=== PATIENT | male | born 1960 | race Caucasian/White ===

== ENCOUNTER 2019-05-14 16:31 | Emergency (ER) | payer MEDICARE, MEDICAID ==
[~2019-05-14] VITALS: Ht 172.7 cm; Wt 95.0 kg
[2019-05-14] MEDS ORDERED: ondansetron/PF 4mg/2ml inj IV ONE (18:45)
[2019-05-14] MEDS ORDERED: morphine 2 MG/ML inj. syringe IV ONE (18:45)
--- NOTE | 2019-05-14 19:35 | NUR ---
Received report from Raina JARRETT and assumed pt care.
[2019-05-14 20:25] VITALS: BP 150/85
== END 2019-05-14 20:26 | disposition home or self-care (01) ==
LOC: ER 16:31
DX: R04.0 Epistaxis (principal); I10 Essential (primary) hypertension; Z88.5 Allergy status to narcotic agent
CPT/HCPCS: 30901; 96374; 96375; 99284; J2270; J2405

== ENCOUNTER 2019-05-16 09:14 | Emergency (ER) | payer MEDICARE, MEDICAID ==
[~2019-05-16] VITALS: Ht 172.7 cm; Wt 95.0 kg
[2019-05-16] MEDS ORDERED: oxymetazoline 15 ML nasal spray NS ONE (09:50)
[2019-05-16] MEDS ORDERED: LORazepam 1 MG tablet PO ONE (10:25)
[2019-05-16] MEDS ORDERED: morphine 4 MG/ML inj SYRINge IM ONE (10:30)
[2019-05-16 10:44] VITALS: BP 141/86
[2019-05-16] MEDS ORDERED: CEPH250T PO (11:48)
== END 2019-05-16 11:34 | disposition home or self-care (01) ==
LOC: ER 09:15
DX: R04.0 Epistaxis (principal); I10 Essential (primary) hypertension; Z88.5 Allergy status to narcotic agent; Z79.899 Other long term (current) drug therapy
CPT/HCPCS: 30901; 96372; 99285; J2270; 99284

== ENCOUNTER 2019-05-19 10:39 | Emergency (ER) | payer MEDICARE, MEDICAID ==
[~2019-05-19] VITALS: Ht 172.7 cm; Wt 95.0 kg
[~2019-05-19 10:39] MED LIST: CEPH250T PO
[2019-05-19 14:14] VITALS: BP 158/92
== END 2019-05-19 13:30 | disposition home or self-care (01) ==
LOC: ER 10:39
DX: Z48.00 Encounter for change or removal of nonsurgical wound dressing (principal); I10 Essential (primary) hypertension; Z88.5 Allergy status to narcotic agent
CPT/HCPCS: 99281

== ENCOUNTER 2025-03-09 14:23 | Inpatient (IN) | payer MEDICARE, MEDICAID ==
[~2025-03-09] VITALS: Ht 170.2 cm; Wt 60.0 kg
--- NOTE | 2025-03-09 15:27 | Physician Documentation ---
History of Present Illness ~ General Chief Complaint: Mechanical Fall Stated Complaint: R HIP X Time Seen by MD: 14:39 Primary Medical Doctor: None Mode of Arrival: EMS History of Present Illness Initial Comments CC: Right hip pain HPI: 64-year-old male with a history of hypertension who drinks one pt of whiskey daily presents with right hip pain and inability to ambulate complaining of an 8/10 throbbing pain. Per report he had a mechanical fall approximately one week ago and landed on his right hip ever since he has been unable to bear weight and unable to ambulate. A spanish speaking babysitter checked on him today and noticed a situation at which time the ambulance was called. Denies any head or neck trauma. No chest pain, shortness of breath, abdominal pain, vomiting or diarrhea. Patient denies any open wounds. ROS: Constitutional: Negative for fever and chills. HENT: Negative for sore throat and rhinorrhea. Eyes:Negative for pain and redness. Respiratory: Negative for cough and shortness of breath. Cardiovascular: Negative for chest pain and palpitations. Gastrointestinal: Negative for nausea and vomiting. Genitourinary: Negative for dysuria and hematuria. Musculoskeletal: Positive for right hip pain Skin: Negative for rash and pruritus. Neurological: Negative for acute numbness or weakness. PHYSICAL EXAM: General Appearance: WDWN, No Distress, Cooperative, Awake Head: No Trauma. Scalp Normal Eyes: Lids normal, conjunctiva normal ENT: Mucous membranes normal, facial bones normal, lips normal, oropharynx norm al Neck: Normal active FROM, non-tender with ROM, no meningeal signs, No JVD Back: Normal active FROM, non-tender with ROM, no CVAT Resp: Normal resp rate, normal flow, lungs clear to auscultation, no resp distress, no retractions Heart: Reg rhythm, no murmur Abd: Soft, non-tender, no guarding, no rebound, no mass Musc/Skel: No chest wall tenderness, Normal ROM UE's and LE's, No acute bone/joint abnormality or tenderness Skin: Normal color, no petechia/purpura, no rash Extremities: 1+ bilateral lower extremity edema, 1+ TTP right lateral hip, unable to flex or rotated hip, femoral pulse 2 +, sensation intact to light touch anterior, posterior, medial, lateral, dorsal webspace of right lower extremity, leg does not appear shortened or rotated Neuro: Motor 5/5 & Symmetric Bilat, CN 2-12 grossly intact and symmetric bilat. Oriented x4, speech normal. Psych: Mood & Affect: Normal, Depressed: 0, Awareness & insight normal ER COURSE -I have reviewed the triage note. History obtained from the patient -All Labs, if applicable, independently reviewed by me I checked in EMR for old Records -Summary of additional information obtained from old records or from a source other than the patient: Medic report Repeat Evaluation: 5:00 p.m. hemodynamically stable, pain 3/10 Additional REPEAT EVALUATION: Results and plan of care discussed with patient, patient understands and is agreeable to plan and disposition MEDICAL DECISION MAKIN-year-old male presents with recent mechanical fall onto right hip found to have a subcapital femoral neck fracture, closed, neurovascularly intact, orthopedics we will be consulted, patient also found to be hypokalemic at 2.7 which we will be treated with p.o. and IV potassium, likely a results of patient's chronic alcoholism, currently hemodynamically stable with no evidence of withdrawal, neurologically intact and denies any head or neck trauma alert and oriented x4, patient will be admitted for further treatment and workup Patient will be signed out to , awaiting hospitalist team called to admit patient Please see ED course for time stamped additional medical decision making during ED stay CRITICAL CARE TIME excluding billable procedures, 45 minutes were spent in generating a differential diagnosis, stratifying it based on objective testing results, history, and physical examination; and then implementing a treatment plan for this patient Medication Reconciliation Allergies: Coded Allergies: codeine (Verified Allergy, Intermediate, 05/14/19) Past Medical History Past Medical History: Epistaxis, Hypertension Past Surgical History: other Alcohol Use: None Drug Use: none Lives with: Spouse Lives In: Home Physical Exam Physical Exam Vital Signs: Temperature: 99.1, Source: Oral, Heart Rate: 97, Respiratory Rate: 18, BP: 91/55, Pulse Oximetry: 97, Weight: 60.000 Oxygen Flow Rate: 0 Progress Results/Orders Results/Orders Orders - TRINY COLEY MD BMP (03/09/25 15:03) Urinalysis, Cult If Indicated (03/09/25 15:03) Chest,Single View (03/09/25 15:03) Hip Unilateral 2-3 Views (03/09/25 15:03) Saline Lock (03/09/25 15:03) Monitor (03/09/25 15:03) Potassium Cl Inj (Potassium Cl Inj) (03/09/25 16:05) Page Hospitalist (03/09/25 17:37) MG (03/09/25 15:06) PBNP (03/09/25 15:06) PHOS (03/09/25 15:06) Completed Orders - TRINY COLEY MD Cbc/Diff (03/09/25 15:03) Electrocardiogram (03/09/25 15:03) Chest,Single View (03/09/25 15:03) Hip Unilateral 2-3 Views (03/09/25 15:03) Nothing By Mouth (03/09/25 Dinner) Normal Saline 500ml Iv Soln (Sodium Chlo (03/09/25 15:05) Potassium Cl 10meq Er Tablet (Klor-Con 1 (03/09/25 15:50) Morphine 2mg/Ml Inj. (Morphine Inj.) (03/09/25 16:30) Ondansetron Inj. (Zofran 4mg/2ml Vial) (03/09/25 16:30) Morphine 4mg/Ml Inj. (Morphine Inj.) (03/09/25 16:50) Medications Received in ER Medications (Trade) Dose Ordered Sig/Ciarra Route PRN Reason Start Time Stop Time Status Last Admin Dose Admin Sodium Chloride 500 ml @ 500 mls/hr ONCE ONCE IV 03/09/25 15:05 03/09/25 16:04 DC 03/09/25 15:42 500 MLS/HR (Klor-Con 10mEq ER tablet) 20 meq NOW ONCE PO 03/09/25 15:50 03/09/25 15:53 DC 03/09/25 16:14 20 MEQ Potassium Chloride 40 meq/ Sodium Chloride 520 ml @ 130 mls/hr ONCE ONCE IV 03/09/25 16:05 03/09/25 20:04 03/09/25 16:13 130 MLS/HR (Zofran 4mg/2ml vial) 4 mg ONCE ONCE IV 03/09/25 16:30 03/09/25 16:32 DC 03/09/25 16:56 4 MG (morphine inj.) 2 mg ONCE ONCE IV 03/09/25 16:50 03/09/25 16:51 DC 03/09/25 16:58 2 MG Vital Signs 03/09/25 03/09/25 03/09/25 03/09/25 14:27 14:35 14:46 14:52 Temp 99.1 Pulse 100 98 97 Resp 21 20 19 16 B/P (MAP) 104/62 90/45 (60) 89/45 (60) Pulse Ox 94 97 97 O2 Flow Rate 0 0 0 03/09/25 03/09/25 03/09/25 03/09/25 15:02 15:05 15:06 15:08 Pulse 97 95 97 97 Resp 16 14 16 18 B/P (MAP) 86/53 (64) 84/51 (62) 86/53 (64) 91/55 (67) Pulse Ox 95 95 97 97 O2 Flow Rate 0 0 0 0 03/09/25 03/09/25 03/09/25 03/09/25 15:33 16:23 17:01 18:14 Pulse 94 95 92 101 Resp 16 16 16 14 B/P (MAP) 99/54 (69) 118/70 (86) 110/66 (81) 133/61 (85) Pulse Ox 94 96 95 95 O2 Flow Rate 0 0 0 0 Laboratory Tests Test 03/09/25 15:06 03/09/25 18:30 White Blood Count 12.4 H Red Blood Count 3.34 L Hemoglobin 12.0 L Hematocrit 35.8 L Mean Corpuscular Volume 107.1 H Mean Corpuscular Hemoglobin 36.1 H Mean Corpuscular Hemoglobin Concent 33.7 Red Cell Distribution Width 18.0 H Platelet Count 355 Mean Platelet Volume 7.5 Neutrophils (%) (Auto) 71.5 Lymphocytes (%) (Auto) 15.0 L Monocytes (%) (Auto) 9.6 Eosinophils (%) (Auto) 3.2 Basophils (%) (Auto) 0.7 Neutrophils # (Auto) 8.9 H Lymphocytes # (Auto) 1.9 Monocytes # (Auto) 1.2 H Eosinophils # (Auto) 0.4 Basophils # (Auto) 0.1 CBC Comment Coagulation Comments Sodium Level 137 Potassium Level 2.7 *L Chloride Level 98 L Carbon Dioxide Level 29.3 Anion Gap 10 Blood Urea Nitrogen 8 Creatinine 0.73 Estimated GFR/1.73 m2 > 90 BUN/Creatinine Ratio 11.0 Glucose Level 106 H Calcium Level 8.5 Albumin 2.8 L Chemistry Comments Urine Comment EKG/XRAY/CT/US/VASC/MRI EKG : Additional Comment Rate 92, sinus rhythm, left atrial enlargement, poor R-wave progression nonspecific ST/T changes Abnormal EKG Bone/Soft Tissue X-Ray (Spine) : Additional Comment Right hip x-ray three view Indication: Fall/pain FINDINGS/IMPRESSION: There is a subcapital fracture of the right femoral neck. There are [id number] degenerative changes of the bilateral hips. Atherosclerotic calcification disease. Consults/PCP Consults/PCP : Additional Comment Consult orthopedic surgeon Dr. Alejandro, we will consult on patient upon admission Medical Decision Making Additional information obtaine: other Findings Nursing report Differential Diagnosis Hip fracture, open fracture, pneumonia, pneumothorax, head or neck trauma, electrolyte abnormality, withdrawal Departure Impression: Primary Impression: Closed right hip fracture Additional Impression: Hypokalemia Referrals: NO PRIMARY CARE PROVIDER (PCP) Signature Scribe Signature: xx Attestation: The note accurately reflects work and decisions made by me.Triny Coley MD 03/09/25 TRINY COLEY MD Mar 09, 2025 15:27
--- NOTE | 2025-03-09 15:31 | ELECTROCARDIOGRAPH REPORT ---
[facility] Test Date: 2025-03-09 Test Time: 15:30:39 Pat Name: JEANNINE AVERY Department: [facility] Patient ID: [facility]-[id number] Room: ORTHO [facility] Gender: M Housekeeper Hospital: : 1960 Requested By: TRINY MILLS Order Number: [id number] Reading MD: Dr. Dewayne Pagan Measurements Intervals [place] Rate: 92 P: 80 CT: 174 QRS: 55 QRSD: 81 T: 63 QT: 388 QTc: 481 Interpretive Statements Sinus rhythm Probable left atrial enlargement Anterior infarct, old Electronically Signed On 03-14-2025 0:21:[address] Dewayne Pagan Please click the below link to view image of tracing.
[2025-03-09 15:32] LABS: CREATININE 0.73 MG/DL (0.60-1.10); TOTAL CARBON DIOXIDE 29.3 MMOL/L (24-32); eCRCL 86 ML/MIN; eGFR > 90 ML/MIN
[2025-03-09] MEDS: normal saline 500ml IV soln 500 ML IV ONE ×2 (15:42→21:55)
[2025-03-09 15:45] LABS: MEAN PLATELET VOLUME 7.5 FL (7.4-10.4); RED CELL DISTRIBUTION WIDTH 18.0 % (11.5-14.5)
[2025-03-09] MEDS ORDERED: Potassium Cl inj 40 MEQ in normal saline 250ml IV soln 250 ML IV ONE (15:50)
--- NOTE | 2025-03-09 15:50 | RADIOLOGY REPORT ---
CHEST RADIOGRAPH INDICATION: FALL / TRAUMA TECHNIQUE: DI CHEST,SINGLE VIEW Comparison: None FINDINGS: The cardiac silhouette is unremarkable. The lungs demonstrate no pulmonary airspace consolidation. The pulmonary vasculature is unremarkable. There is no pleural effusion. There is no pneumothorax. Aortic atherosclerotic disease. IMPRESSION: No pulmonary airspace consolidation.
--- NOTE | 2025-03-09 15:51 | RADIOLOGY REPORT ---
INDICATION: RIGHT - TRAUMA TECHNIQUE: DI HIP UNILATERAL 2-3 VIEWSHIP 2-3VWS Comparison: None FINDINGS/IMPRESSION: There is a subcapital fracture of the right femoral neck. There are [id number]-[id number] degenerative changes of the bilateral hips. Atherosclerotic calcification disease. Pelvic vascular phleboliths.
[2025-03-09] MEDS: Potassium Cl 40 MEQ in sodium chloride 0.45% 500 ML IV ONE (16:13)
[2025-03-09] MEDS: ondansetron/PF 4mg/2ml inj IV ONE (16:56)
[2025-03-09] MEDS: morphine 4 MG/ML inj SYRINge IV ONE (16:58)
--- NOTE | 2025-03-09 18:04 | HISTORY AND PHYSICAL ---
History & Physical Providers to Chief complaint, mechanical fall ~ History of Present Illness Reason for Admit\Complaint: Above History of Present Illness Patient in a 64-year-old male with a history of hypertension who drinks one pt of whiskey daily,01 history of multiple medical problem including CVA, gait disorder uses walker for ambulation, history of hepatitis-C, hypertension, hypoalbuminemia, CHF, anemia hemoglobin 12, coronary artery disease MD, presented today to emergency department chief complaint mechanical fall ground level; in addition patient presents with right hip pain and inability to ambulate complaining of an 8/10 throbbing pain. Per report he had a mechanical fall approximately one week ago and landed on his right hip ever since he has been unable to bear weight and unable to ambulate. A supervisor molding checked on him today and noticed a situation at which time the ambulance was called. Denies any head or neck trauma. No chest pain, shortness of breath, abdominal pain, vomiting or diarrhea. Patient denies any open wounds. Department patient was evaluated by physician was diagnosed with right hip fracture and after consultation with orthopedic surgeon decision was made to admit patient for further evaluation and treatment. No additional complaint or concern. Allergies: Coded Allergies: codeine (Verified Allergy, Intermediate, 05/14/19) Active prescriptions I reviewed reconciled Home Medications Home Medications Active Past Medical History Past Medical History As in [facility] Past Surgical History Surgical History Comment As in HPI Past Social History Social History Comment Positive for chronic tobacco and alcohol abuse including currently, deny illicit drug use live with the family good social support Health Maintenance Health Maintenance Noncontributory ROS ROS I review of systems Constitutional : no fever , no chills, or weakness. No diaphoresis. Allergic/Immunologic, no lymphadenopathy, no hives, no skin eruptions. Eyes, no recent visual changes, no eye pain, no photophobia. Ears, nose, mouth, throat, no sore throat, no nosebleed, no ear pain. Cardiovascular, no palpitations, skipped beats, chest pain, no peripheral edema, Respiratory, no dyspnea, orthopnea, cough, hemoptysis, chest wall pain. Gastrointestinal, no abdominal pain, nausea, vomiting, constipation or diarrhea. : no dysuria, hematuria, pelvic pain, urethral d/c. Endocrine, no polyuria, polydipsia, recent unintentional weight gain or loss. Hematologic/Lymphatic, no petechiae, no enlarged lymph nodes, no bone pain. Integumentary, no rash, no skin lesions, Musculoskeletal, no muscle aches, or pain, no muscle cramps, patient had an episode of mechanical fall ground level Neurological, no dizziness, no headache, no syncope, no paresthesia. Psychiatric, no delusions, visual hallucinations, or hearing hallucinations. ROS - in rest is as in HPI. Exam Vitals: Vital Signs Date Time Temp Pulse Resp B/P (MAP) Pulse Ox O2 Delivery O2 Flow Rate FiO2 03/09/25 17:01 92 16 110/66 (81) 95 0 03/09/25 14:27 99.1 Vital signs, stable ,afebrile. Pulse Oximetry reflects adequate oxygenation. BMI is 20, weight 60 kg General: well developed, well nourished. Awake , alert, and oriented x4, resting comfortably in the bed, in no acute distress . Skin: Warm, dry, no pallor, no rash or petechiae. HEENT: Atraumatic, normocephalic, EOMI, anicteric sclera B; pink conjunctiva; PERRLA, normal oropharynx, moist oral and nasal mucosa. Tympanic membrane , nose , throat clear. Neck: Trachea midline. Supple, full range of motion, no JVD, bruit , hepatojugular reflex , lymphadenopathy or masses, or other lesions Cardiac: Regular rhythm, regular rate no murmurs, rubs, or gallops. Normal S1 and S2, no S3 noticed. PMI is normal. Respiratory: Equal breath sounds bilaterally, no tachypnea; lungs clear to auscultation bilaterally, no wheezing ,rub or rales, or crackles. Chest wall is symmetric and without deformity. No signs of trauma. Chest wall is nontender. No signs of respiratory distress. Resonance is normal upon percussion bilaterally. Gastrointestinal: Abdomen symmetric, non-distended, soft, non-tender, normal bowel sounds x4 quadrant, normoactive, no hepatosplenomegaly , no masses , no bruit, no flank pain bilaterally. No voluntary guarding, rebound, or rigidity. No tenderness to percussion. No pulsatile masses. Equal femoral pulses. No Wilkinson's sign or McBurney point tenderness. Back; no CVA tenderness bilaterally, no deformities. Neck and back are without deformity as well. No tenderness noted on palpation of the spinous processes. Spinous processes are midline. Cervical, thoracic, and lumbar paraspinal muscles are not tender and are without spasm. : normal external genitalia, without lesions, swelling, masses or tenderness. Musculoskeletal: Extremities, normal range of motion, non-tender, muscle strength 5/5 x 4. Negative Homans signs bilaterally on lower extremity. Distal pulses full symmetrical, no clubbing, cyanosis , edema. Locally, right hip tender to palpation neurovascular grossly intact Neurological: Speech is clear, alert, and oriented x 4. No motor or sensory deficit, deep tendon reflexes normal, cerebellar intact. Cranial nerves II-XII intact. Psych: Alert and or appropriate, normal affect. Vascular: Good distal pulses, which are equal x4; capillary refill less than 2 seconds. Lymphatic, no lymphadenopathy. Diagnostic Data Last Recorded Lab Results: 03/09/25 1506 03/09/25 1506 Counseling Services Smoking & Tobacco Cessation: 3-10 Minutes Advance Care Planning Advanced Care plannin - 30 Minutes Additional Plan Assessment Mechanical fall, ground level A right hip fracture Hypokalemia Hypovolemia Anemia hemoglobin 12 Hypoalbuminemia Chronic alcohol abuse including currently Chronic tobacco abuse including currently Additional comorbidities, gait disorder uses walker for ambulation, hepatitis-C, hypertension, CHF coronary artery disease history of MD, history of CVA Plan IV fluids keep patient well hydrated euvolemic Correct electrolytes Pain control p.o. IV analgesics Alcohol withdrawal protocol Substance abuse navigator consult Consulted for 5 minutes to stop using tobacco alcohol patient states is not ready to quit smoking yet PT evaluation and treatment Orthopedic doctor is on the case Additional lab work pending I reconciled home medications DVT gastropathy prophylaxis addressed Sepsis Screening Reassessment Date: Mar 09, 2025 Date of Service: Mar 09, 2025 Billing Provider: JANET MARQUEZ MD Common Visit Codes: [id number] INP/OBS CARE(HIGH) JANET MARQUEZ MD Mar 09, 2025 18:04
[2025-03-09] MEDS ORDERED: ondansetron 4mg rapidly disintigrating tab PO PRN (18:25)
[2025-03-09] MEDS ORDERED: potassium Cl 40MEQ/1/2NS 520ml 520 ML IV PRN (18:25)
[2025-03-09] MEDS ORDERED: bisacodyl 10mg suppository rectal RC PRN (18:25)
[2025-03-09] MEDS ORDERED: ondansetron/PF 4mg/2ml inj IV PRN (18:25)
[2025-03-09] MEDS ORDERED: HYDROcodone/acetaminophen 5mg/325mg tablet PO PRN (18:25)
[2025-03-09] MEDS ORDERED: magnesium hydroxide 30ml (MOM) UD suspension PO PRN (18:25)
[2025-03-09] MEDS ORDERED: morphine 4 MG/ML inj SYRINge IV PRN (18:25)
[2025-03-09] MEDS ORDERED: magnesium sulf-water 2g/50mL 50 ML IV PRN (18:25)
[2025-03-09] MEDS ORDERED: dextrose 50%-water 50ml dispensing syringe IV PRN (18:25)
[2025-03-09] MEDS ORDERED: mag hydrox/Alum hydrox/simeth 30ml oral suspension PO PRN (18:25)
[2025-03-09] MEDS ORDERED: acetaminophen 650mg rectal suppository RC PRN (18:25)
[2025-03-09 19:06] LABS: APTT 28 SECONDS (22-32); INR 1.0 INR
[2025-03-09 19:10] LABS: LEUKOCYTE ESTERASE ,URINE TRACE (Neg); NITRITES, URINE NEGATIVE (Neg); OCCULT BLOOD,URINE NEGATIVE (Neg)
[2025-03-09 19:21] LABS: PHOSPHORUS 3.6 MG/DL (2.3-4.5); PRO BRAIN NATRIURETIC PEPTIDE 368 PG/ML (0-125)
[2025-03-09 19:29] LABS: UA COLLECTION TYPE URINAL
[2025-03-09 19:33] LABS: SQUAMOUS EPITHELIAL CELL,UR NONE SEEN /LPF (FEW)
[2025-03-09] MEDS: K and/or MAG REPLACEMENT MC SCH (20:00)
[2025-03-09] MEDS: docusate sod 100mg capsule PO SCH (20:00)
[2025-03-09] MEDS: thiamine 100mg/ml 2ml inj. IV SCH (20:48)
[2025-03-09] MEDS: potassium Cl 20mEq in NS 1,000 ML IV SCH (20:48)
[2025-03-09] MEDS ORDERED: ATOR-2 PO (20:55)
[2025-03-09] MEDS: morphine 4 MG/ML inj SYRINge IV PRN (22:04)
[2025-03-10] MEDS: normal saline 1000ml 1,000 ML IV ONE (00:12)
[2025-03-10] MEDS: albumin (Human) 5% 250ml 250 ML IV ONE (01:50)
[2025-03-10 01:54] LABS: MEAN PLATELET VOLUME 7.5 FL (7.4-10.4); RED CELL DISTRIBUTION WIDTH 17.9 % (11.5-14.5)
[2025-03-10 02:09] LABS: CREATININE 0.55 MG/DL (0.60-1.10); TOTAL CARBON DIOXIDE 26.0 MMOL/L (24-32); eCRCL 114 ML/MIN; eGFR > 90 ML/MIN
[2025-03-10] MEDS: magnesium Cl slow-release 64mg tablet PO PRN (04:46)
[2025-03-10] MEDS: pantoprazole 40mg Tablet.DR PO SCH (07:55)
[2025-03-10] MEDS: folic acid 1mg/0.2ml inj IV SCH (07:58)
[2025-03-10 10:08] LABS: MEAN PLATELET VOLUME 7.7 FL (7.4-10.4); RED CELL DISTRIBUTION WIDTH 18.2 % (11.5-14.5)
[2025-03-10 10:21] LABS: CREATININE 0.68 MG/DL (0.60-1.10); TOTAL CARBON DIOXIDE 25.5 MMOL/L (24-32); eCRCL 92 ML/MIN; eGFR > 90 ML/MIN
[2025-03-10 10:28] LABS: EOSINOPHILS % (MANUAL) 1.0 % (0-6); LYMPHOCYTES % (MANUAL) 8.0 % (21-51); METAMYLEOCYTES% (MANUAL) 2.0 % (0-0); MONOCYTES % (MANUAL) 5.0 % (2-12); NEUTROPHILS % (MANUAL) 84.0 % (42-75); PLATELET ESTIMATE NORMAL
[2025-03-10] MEDS: potassium Cl 20 mEq SR tablet PO PRN ×2 (10:51→10:52)
[2025-03-10 15:31] VITALS: BP 149/78; PULSE 97; RESP 14; TEMP 97.1; O2SAT 94
[2025-03-10] MEDS: HYDROcodone/acetaminophen 10/325mg tab PO PRN (16:16)
--- NOTE | 2025-03-10 17:33 | PROGRESS NOTE ---
Daily Progress Note Providers to CC ~ no new complaint today, resting comfortably in the bed Central Line/PICC still needed: No Rivero-Non Protocol Rivero Indications Met/Not Met: F/C Indications Not Met Antibiotic Timeout Antibiotic Ordered?: Yes MRSA Education MRSA Education Provided to pt: Yes Subjective As above Objective Vital Signs Date Time Temp Pulse Resp B/P (MAP) Pulse Ox O2 Delivery O2 Flow Rate FiO2 03/10/25 16:16 17 03/10/25 15:31 97.1 97 149/78 (101) 94 Room Air 03/10/25 08:45 2.0 03/09/25 19:52 N/A Vital signs, stable ,afebrile. Pulse Oximetry reflects adequate oxygenation. Patient is on 2 L oxygen nasal cannula General: well developed, well nourished. Awake , alert, and oriented x4, resting comfortably in the bed, in no acute distress . Skin: Warm, dry, no pallor, no rash or petechiae. HEENT: Atraumatic, normocephalic, EOMI, anicteric sclera B; pink conjunctiva; PERRLA, normal oropharynx, moist oral and nasal mucosa. Tympanic membrane , nose , throat clear. Neck: Trachea midline. Supple, full range of motion, no JVD, bruit , hepatojugular reflex , lymphadenopathy or masses, or other lesions Cardiac: Regular rhythm, regular rate no murmurs, rubs, or gallops. Normal S1 and S2, no S3 noticed. PMI is normal. Respiratory: Equal breath sounds bilaterally, no tachypnea; lungs clear to auscultation bilaterally, no wheezing ,rub or rales, or crackles. Chest wall is symmetric and without deformity. No signs of trauma. Chest wall is nontender. No signs of respiratory distress. Resonance is normal upon percussion bilaterally. Gastrointestinal: Abdomen symmetric, non-distended, soft, non-tender, normal bowel sounds x4 quadrant, normoactive, no hepatosplenomegaly , no masses , no bruit, no flank pain bilaterally. No voluntary guarding, rebound, or rigidity. No tenderness to percussion. No pulsatile masses. Equal femoral pulses. No Wilkinson's sign or McBurney point tenderness. Back; no CVA tenderness bilaterally, no deformities. Neck and back are without deformity as well. No tenderness noted on palpation of the spinous processes. Spinous processes are midline. Cervical, thoracic, and lumbar paraspinal muscles are not tender and are without spasm. : normal external genitalia, without lesions, swelling, masses or tenderness. Musculoskeletal: Extremities, normal range of motion, non-tender, muscle strength 5/5 x 4. Negative Homans signs bilaterally on lower extremity. Distal pulses full symmetrical, no clubbing, cyanosis , edema. Neurological: Speech is clear, alert, and oriented x 4. No motor or sensory deficit, deep tendon reflexes normal, cerebellar intact. Cranial nerves II-XII intact. Psych: Alert and or appropriate, normal affect. Vascular: Good distal pulses, which are equal x4; capillary refill less than 2 seconds. Lymphatic, no lymphadenopathy. Result Diagram: 03/10/25 0934 03/10/25 0934 Coagulation Studies Laboratory Tests Test 03/09/25 15:06 Prothrombin Time 10.3 SECONDS (9.0-12.0) INR International Normalized Ratio 1.0 INR Activated Partial Thromboplast Time 28 SECONDS (22-32) Coagulation Comments Problem\Assessment\Plan Assessment Mechanical fall, ground level A right hip fracture Hypokalemia UTI COPD exacerbation Hypovolemia Anemia hemoglobin 12 Hypoalbuminemia Chronic alcohol abuse including currently Chronic tobacco abuse including currently Additional comorbidities, gait disorder uses walker for ambulation, hepatitis-C, hypertension, CHF coronary artery disease history of [place], history of CVA Plan IV fluids , antibiotics, steroids, keep patient well hydrated euvolemic DuoNeb, incentive spirometry, oxygen support therapy Correct electrolytes Pain control p.o. IV analgesics Alcohol withdrawal protocol Substance abuse navigator consult PT evaluation and treatment Orthopedic doctor is on the case Additional lab work pending I reconciled home medications DVT gastropathy prophylaxis addressed Date of Service: Mar 10, 2025 Billing Provider: JANET MARQUEZ MD Common Visit Codes: [id number] INP/OBS CARE(HIGH) JANET MARQUEZ MD Mar 10, 2025 17:33
[2025-03-10 18:00] VITALS: BP 127/63; PULSE 80; RESP 14; TEMP 97.4; O2SAT 98
[2025-03-10] MEDS: azithromycin/NS 500mg/250ml 250 ML IV SCH (18:00)
[2025-03-10] MEDS: CefTRIAXone/D5W-Rocephin 1gm 50 ML IV SCH (18:07)
[2025-03-10] MEDS: ipratropium/albuterol 3ml nebule NEB SCH (19:00)
[2025-03-10 19:48] VITALS: PULSE 88; RESP 16; O2SAT 94
[2025-03-10] MEDS ORDERED: ipratropium/albuterol 3ml nebule NEB PRN (20:00)
[2025-03-10] MEDS: methylPREDNISolone sod succ/PF 40mg inj. IV SCH (20:29)
[2025-03-10 22:27] VITALS: BP 95/56; PULSE 82; RESP 14; TEMP 97.6; O2SAT 93
[2025-03-11] VITALS (18 sets, daily range): BP systolic 115–170; BP diastolic 68–100; PULSE 71–106; RESP 10–17; TEMP 97.1–98.2; O2SAT 93–100
[2025-03-11 06:20] LABS: MEAN PLATELET VOLUME 7.8 FL (7.4-10.4)
[2025-03-11 06:22] LABS: RED CELL DISTRIBUTION WIDTH 18.5 % (11.5-14.5)
[2025-03-11 06:31] LABS: CREATININE 0.61 MG/DL (0.60-1.10); TOTAL CARBON DIOXIDE 23.4 MMOL/L (24-32); eCRCL 102 ML/MIN; eGFR > 90 ML/MIN
[2025-03-11] MEDS: HYDROmorphone inj. 0.5 MG/0.5 ML DISP.SYRIN IV PRN (11:02)
[2025-03-11] MEDS: magnesium sulf-water 4G/100mL 100 ML IV PRN (11:13)
[2025-03-11] MEDS ORDERED: BUPIVAcaine 2.5mg/ml inj 50ml vial (contains preservative) ONE (12:28)
[2025-03-11] MEDS: ringers solution, lacted 1,000 ML IV SCH ×2 (13:00→14:10)
[2025-03-11] MEDS ORDERED: midazolam 1 mg/ML 2ml injection ONE (13:20)
[2025-03-11] MEDS ORDERED: fentaNYL/PF 50MCG/1 ML 2ML syringe ONE (13:20)
[2025-03-11] MEDS ORDERED: propofol inj 20 ML IV ONE (13:23)
[2025-03-11] MEDS: BUPIVAcaine/PF 2.5 mg/ml (0.25%) 30ml vial IJ ONE (13:38)
--- NOTE | 2025-03-11 13:54 | CONSULTATION REPORT ---
History of Present Illness Providers to CC ~ Reason for Admit\Admit Dx: r hip fx Refering MD: Marek History of Present Illness The patient is a 64-year-old man who fell at home about a week ago injuring his right hip. He was having difficulty moving and eventually someone came to check on him and called an ambulance. He was brought to the hospital where x-rays showed a femoral neck fracture on the right side. Orthopedic consult was obtained for treatment of right hip fracture. He reports no prior problems with the hip. Allergies: Coded Allergies: codeine (Verified Allergy, Intermediate, 05/14/19) Home Medications Home Medications Active Reported Atorvastatin Calcium 80 Mg Tablet 1 Tab PO DAILY Past Family History Family History: Patient reports no known family medical history. Physical Exam Last Vital Signs Recorded: Temperature: 98.2, Source: Oral, Heart Rate: 71, Respiratory Rate: 15, BP: 150/78, Pulse Oximetry: 93, Weight: 60.000 General Appearance: alert, no apparent distress Extremities There are no deformity of the hip is noted. He has tenderness in the right groin area. The thigh knee leg ankle and foot are nontender. He has got good ankle motion and good cap refill distally. No neuro deficits distally. Pelvis is stable and nontender Results Results/Orders Results/Orders The imaging showed a nondisplaced valgus impacted femoral neck fracture with a preservation of the articular surface of the right hip joint Diagram Lab Result Diagram: 03/11/25 0518 03/11/25 0518 Assessment/Plan Problems/Diagnosis: (1) Closed right hip fracture Additional Plan Fixation is indicated utilizing percutaneous screws. This will be done soon as the patient is medically stabilized. Problem Qualifiers (1) Closed right hip fracture: Qualified Codes: S72.001A - Fracture of unspecified part of neck of right femur, initial encounter for closed fracture HUGO BALBUENA Jr., MD Mar 11, 2025 13:54
--- NOTE | 2025-03-11 13:57 | CONSULTATION REPORT ---
History of Present Illness Providers to CC ~ Reason for Admit\Admit Dx: r hip fx Refering : Marek History of Present Illness The patient is a 64-year-old man who suffered a mechanical fall in his right hip a week ago. On presentation x-rays and imaging showed a right hip fracture. This is a valgus impacted and minimally displaced. Surgery is indicated to stabilize fracture. Risks and benefits were discussed with the patient regarding this procedure. Risks of this type of procedure include but are not limited to infection, bleeding, nerve or vessel damage, failure to heal and hardware pain. He agreed to proceed. Once in the operating room the anesthetic was given and he was placed on the operative table. The right leg and hip were prepped and draped in usual manner. Time-out procedure was observed. The fluoroscopically guided incision was made over the lateral femur and three pins were advanced from the lateral femur equally spaced into the femoral head. Position was checked both in AP and lateral positions. Measurements were obtained and the outer cortex was drilled. The three screws were then placed over the guide pins which were then removed. This was done under fluoro and x- rays showed good position of the screws. The incision was irrigated and closed in layers. Marcaine was injected and a sterile dressing was then applied. The patient was awakened and taken to the recovery room in stable condition and tolerated the procedure well. Allergies: Coded Allergies: codeine (Verified Allergy, Intermediate, 05/14/19) Home Medications Home Medications Active Reported Atorvastatin Calcium 80 Mg Tablet 1 Tab PO DAILY Past Family History Family History: Patient reports no known family medical history. Physical Exam Last Vital Signs Recorded: Temperature: 98.2, Source: Oral, Heart Rate: 71, Respiratory Rate: 15, BP: 150/78, Pulse Oximetry: 93, Weight: 60.000 General Appearance: alert, no apparent distress Results Diagram Lab Result Diagram: 03/11/2551703/11/25517 Assessment/Plan Problems/Diagnosis: (1) Closed right hip fracture Problem Qualifiers (1) Closed right hip fracture: Qualified Codes: S72.001A - Fracture of unspecified part of neck of right femur, initial encounter for closed fracture HUGO BALBUENA Jr., MD Mar 11, 2025 13:57
[2025-03-11] MEDS ORDERED: labetalol 20mg/4ml (5mg/ml) syringe IV PRN (14:10)
[2025-03-11] MEDS ORDERED: hydrALAZINE 20mg/ml inj. IV PRN (14:10)
[2025-03-11] MEDS ORDERED: ondansetron/PF 4mg/2ml inj IV PRN (14:10)
[2025-03-11] MEDS ORDERED: acetaminophen 1,000mg/100ml IV 100 ML IV PRN (14:10)
[2025-03-11] MEDS ORDERED: morphine 4 MG/ML inj SYRINge IV PRN ×2 (14:10)
[2025-03-11] MEDS ORDERED: fentaNYL/PF 50MCG/1 ML 2ML syringe IV PRN ×2 (14:10)
--- NOTE | 2025-03-11 16:20 | RADIOLOGY REPORT ---
INDICATION: postop TECHNIQUE: DI HIP UNILATERAL 2-3 VIEWSHIP 2-3VWS Comparison: 03/09/2025 FINDINGS/IMPRESSION: Interval placement of 3 internal fixation pins along the right femoral neck/ intertrochanteric region for the previously described subcapital neck fracture. Alignment appears near anatomic. Atherosclerotic calcification disease. [id number] degenerate changes of the right hip.
--- NOTE | 2025-03-11 19:01 | PROGRESS NOTE ---
Daily Progress Note Providers to CC ~ feels fine today, pain well controlled, awaiting to go to OR Central Line/PICC still needed: No Rivero-Non Protocol Rivero Indications Met/Not Met: F/C Indications Not Met Antibiotic Timeout Antibiotic Ordered?: Yes MRSA Education MRSA Education Provided to pt: Yes Subjective As above Objective Vital Signs Date Time Temp Pulse Resp B/P (MAP) Pulse Ox O2 Delivery O2 Flow Rate FiO2 03/11/25 17:45 87 135/76 (95) 97 03/11/25 16:35 15 03/11/25 15:15 Room Air 03/11/25 15:00 97.5 03/11/25 14:40 0.0 03/11/25 07:58 21 Result Diagram: 03/11/2551703/11/25 05 Vital signs, stable ,afebrile. Pulse Oximetry reflects adequate oxygenation. General: well developed, well nourished. Awake , alert, and oriented x4, resting comfortably in the bed, in no acute distress . Skin: Warm, dry, no pallor, no rash or petechiae. HEENT: Atraumatic, normocephalic, EOMI, anicteric sclera B; pink conjunctiva; PERRLA, normal oropharynx, moist oral and nasal mucosa. Tympanic membrane , nose , throat clear. Neck: Trachea midline. Supple, full range of motion, no JVD, bruit , hepatojugular reflex , lymphadenopathy or masses, or other lesions Cardiac: Regular rhythm, regular rate no murmurs, rubs, or gallops. Normal S1 and S2, no S3 noticed. PMI is normal. Respiratory: Equal breath sounds bilaterally, no tachypnea; lungs clear to auscultation bilaterally, no wheezing ,rub or rales, or crackles. Chest wall is symmetric and without deformity. No signs of trauma. Chest wall is nontender. No signs of respiratory distress. Resonance is normal upon percussion bilaterally. Gastrointestinal: Abdomen symmetric, non-distended, soft, non-tender, normal bowel sounds x4 quadrant, normoactive, no hepatosplenomegaly , no masses , no bruit, no flank pain bilaterally. No voluntary guarding, rebound, or rigidity. No tenderness to percussion. No pulsatile masses. Equal femoral pulses. No Wilkinson's sign or McBurney point tenderness. Back; no CVA tenderness bilaterally, no deformities. Neck and back are without deformity as well. No tenderness noted on palpation of the spinous processes. Spinous processes are midline. Cervical, thoracic, and lumbar paraspinal muscles are not tender and are without spasm. : normal external genitalia, without lesions, swelling, masses or tenderness. Musculoskeletal: Extremities, normal range of motion, non-tender, muscle strength 5/5 x 4. Negative Homans signs bilaterally on lower extremity. Distal pulses full symmetrical, no clubbing, cyanosis , edema. Neurological: Speech is clear, alert, and oriented x 4. No motor or sensory deficit, deep tendon reflexes normal, cerebellar intact. Cranial nerves II-XII intact. Psych: Alert and or appropriate, normal affect. Vascular: Good distal pulses, which are equal x4; capillary refill less than 2 seconds. Lymphatic, no lymphadenopathy. Coagulation Studies Laboratory Tests Test 03/09/25 15:06 Prothrombin Time 10.3 SECONDS (9.0-12.0) INR International Normalized Ratio 1.0 INR Activated Partial Thromboplast Time 28 SECONDS (22-32) Coagulation Comments Problem\Assessment\Plan Assessment Mechanical fall, ground level A right hip fracture Hypokalemia UTI COPD exacerbation Hypovolemia Anemia hemoglobin 12 Hypoalbuminemia Chronic alcohol abuse including currently Chronic tobacco abuse including currently Additional comorbidities, gait disorder uses walker for ambulation, hepatitis-C, hypertension, CHF coronary artery disease history of [place], history of CVA Plan IV fluids , antibiotics, steroids, keep patient well hydrated euvolemic DuoNeb, incentive spirometry, oxygen support therapy Correct electrolytes Pain control p.o. IV analgesics Alcohol withdrawal protocol Substance abuse navigator consult PT evaluation and treatment Orthopedic doctor is on the case Additional lab work pending I reconciled home medications DVT gastropathy prophylaxis addressed Date of Service: Mar 11, 2025 Billing Provider: JANET MARQUEZ MD Common Visit Codes: [id number] INP/OBS CARE(HIGH) JANET MARQUEZ MD Mar 11, 2025 19:00
[2025-03-12 02:00] VITALS: BP 127/72; PULSE 76; RESP 12; TEMP 97.5; O2SAT 97
[2025-03-12] MEDS: diazepam inj 5 MG/ML inj. IV PRN (05:52)
[2025-03-12 06:00] VITALS: BP 174/91; PULSE 114; RESP 13; TEMP 97.6; O2SAT 96
[2025-03-12 06:53] LABS: CREATININE 0.65 MG/DL (0.60-1.10); TOTAL CARBON DIOXIDE 21.9 MMOL/L (24-32); eCRCL 96 ML/MIN; eGFR > 90 ML/MIN
[2025-03-12 08:07] LABS: MEAN PLATELET VOLUME 7.6 FL (7.4-10.4); RED CELL DISTRIBUTION WIDTH 18.1 % (11.5-14.5)
--- NOTE | 2025-03-12 08:43 | OPERATIVE REPORT ---
Operative Report Providers to ~ Date of Procedure: Mar 11, 2025 Pre-Operative Diagnosis: R Hip FEMORAL NECK FRACTURE FX Post-Operative Diagnosis SAME as PRE-Op Procedure Performed RIGHT HIP PERCUTANEOUS SCREW FIXATION of femoral neck fracture Surgeon: Satinder Alejandro MD Route Returner none Anesthesiologist: Glory Aquino Findings: Prosthetics\Implants used: Nikki 7.0 canulated screw x 3 Estimated Blood Loss: min Specimen Removed: none Description of Procedure: The patient is a 64-year-old man who suffered a mechanical fall in his right hip a week ago. On presentation x-rays and imaging showed a right hip fracture. This is a valgus impacted and minimally displaced. Surgery is indicated to stabilize fracture. Risks and benefits were discussed with the patient regarding this procedure. Risks of this type of procedure include but are not l imited to infection, bleeding, nerve or vessel damage, failure to heal and hardware pain. He agreed to proceed. Once in the operating room the anesthetic was given and he was placed on the operative table. The right leg and hip were prepped and draped in usual manner. Time-out procedure was observed. The fluoroscopically guided incision was made over the lateral femur and three pins were advanced from the lateral femur equally spaced into the femoral head. Position was checked both in AP and lateral positions. Measurements were obtained and the outer cortex was drilled. The three screws were then placed over the guide pins which were then removed. This was done under fluoro and x- rays showed good position of the screws. The incision was irrigated and closed in layers. Marcaine was injected and a sterile dressing was then applied. The patient was awakened and taken to the recovery room in stable condition and tolerated the procedure well. Counts repoted as correct: Yes HUGO ALEJANDRO Jr., MD Mar 12, 2025 08:43
--- NOTE | 2025-03-12 08:44 | PROGRESS NOTE ---
Progress Note Ortho Ortho Post Op Day #: 1 ROS ROS No new complaints Exam Exam: Alert and Oreinted x4, Appropriate, Vital signs are stable, Distal neurovasc intact, Calves: soft bilaterally Problem/Assessment/Plan Assessment\Plan: Anticipate disch to home Problems/Diagnosis: (1) Closed right hip fracture Additional Plan follow up in 3 weeks Results/Orders Result Diagram: 03/12/25 0755 03/12/25 0558 Problem Qualifiers (1) Closed right hip fracture: Qualified Codes: S72.001A - Fracture of unspecified part of neck of right femur, initial encounter for closed fracture HUGO BALBUENA Jr., MD Mar 12, 2025 08:44
[2025-03-12 10:00] VITALS: BP 167/86; PULSE 96; RESP 18; TEMP 98.7; O2SAT 97
[2025-03-12] MEDS ORDERED: INDO50CA96 PO (11:35)
[2025-03-12] MEDS ORDERED: MAGN400C PO (11:35)
[2025-03-12] MEDS ORDERED: HYDR-3686 PO (11:35)
[2025-03-12] MEDS ORDERED: HYDR-3965 PO (11:35)
[2025-03-12] MEDS ORDERED: CLON0.1T2 PO (11:35)
[2025-03-12 11:55] VITALS: RESP 15
[2025-03-12] MEDS: magnesium Cl slow-release 64mg tablet PO STA (11:55)
--- NOTE | 2025-03-12 17:26 | DISCHARGE SUMMARY ---
Discharge Summary Providers to CC ~ feels fine today cleared for discharge by Orthopedic doctor Discharge Summary Assessment Mechanical fall, ground level A right hip fracture status post surgery of the hip orthopedic doctor on this admission Hypokalemia Sepsis, Associated with metabolic encephalopathy Hypovolemia Anemia hemoglobin 12 Hypoalbuminemia Chronic alcohol abuse including currently Chronic tobacco abuse including currently Additional comorbidities, gait disorder uses walker for ambulation, hepatitis-C, hypertension, CHF coronary artery disease history of [place], history of CVA Admission Diagnosis: R Hip FEMORAL NECK FRACTURE FX Admission Diagnosis Comment: Mechanical fall, ground level A right hip fracture status post surgery of the hip orthopedic doctor on this admission Hypokalemia Sepsis, associated with metabolic encephalopathy Hypovolemia Anemia hemoglobin 12 Hypoalbuminemia Chronic alcohol abuse including currently Chronic tobacco abuse including currently Additional comorbidities, gait disorder uses walker for ambulation, hepatitis-C, hypertension, CHF coronary artery disease history of [place], history of CVA Hospital Course DATE OF ADMISSION: March 09, 2025 DATE OF DISCHARGE: March 13, 2025 Discharge Diagnosis\Comment: Mechanical fall, ground level A right hip fracture status post surgery of the hip orthopedic doctor on this admission Hypokalemia Sepsis, associated with metabolic encephalopathy Hypovolemia Anemia hemoglobin 12 Hypoalbuminemia Chronic alcohol abuse including currently Chronic tobacco abuse including currently Additional comorbidities, gait disorder uses walker for ambulation, hepatitis-C, hypertension, CHF coronary artery disease history of [place], history of CVA Operations\Procedures: Right hip arthroplasty Consultants: Orthopedic doctor Complications: Non Condition on DC: Stable Discharge Summary: Patient in a 64-year-old male with a history of hypertension who drinks one pt of whiskey daily,01 history of multiple medical problem including CVA, gait disorder uses walker for ambulation, history of hepatitis-C, hypertension, hypoalbuminemia, CHF, anemia hemoglobin 12, coronary artery disease [place], pre sented today to emergency department chief complaint mechanical fall ground level; in addition patient presents with right hip pain and inability to ambulate complaining of an 8/10 throbbing pain. Per report he had a mechanical fall approximately one week ago and landed on his right hip ever since he has been unable to bear weight and unable to ambulate. 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 Denies any head or neck trauma. No chest pain, shortness of breath, abdominal pain, vomiting or diarrhea. Patient denies any open wounds. Department patient was evaluated by physician was diagnosed with right hip fracture and after consultation with orthopedic surgeon decision was made to admit patient for further evaluation and treatment. No additional complaint or concern. Admission patient was extensively evaluated treated, a right hip arthroplasty completed by orthopedic doctor, today patient feels better was cleared for discharge by orthopedic doctor, today on physical exam, Vital signs, stable ,afebrile. Pulse Oximetry reflects adequate oxygenation. General: well developed, well nourished. Awake , alert, and oriented x4, resting comfortably in the bed, in no acute distress . Skin: Warm, dry, no pallor, no rash or petechiae. HEENT: Atraumatic, normocephalic, EOMI, anicteric sclera B; pink conjunctiva; PERRLA, normal oropharynx, moist oral and nasal mucosa. Tympanic membrane , nose , throat clear. Neck: Trachea midline. Supple, full range of motion, no JVD, bruit , hepatojugular reflex , lymphadenopathy or masses, or other lesions Cardiac: Regular rhythm, regular rate no murmurs, rubs, or gallops. Normal S1 and S2, no S3 noticed. PMI is normal. Respiratory: Equal breath sounds bilaterally, no tachypnea; lungs clear to auscultation bilaterally, no wheezing ,rub or rales, or crackles. Chest wall is symmetric and without deformity. No signs of trauma. Chest wall is nontender. No signs of respiratory distress. Resonance is normal upon percussion bilaterally. Gastrointestinal: Abdomen symmetric, non-distended, soft, non-tender, normal bowel sounds x4 quadrant, normoactive, no hepatosplenomegaly , no masses , no bruit, no flank pain bilaterally. No voluntary guarding, rebound, or rigidity. No tenderness to percussion. No pulsatile masses. Equal femoral pulses. No Wilkinson's sign or McBurney point tenderness. Back; no CVA tenderness bilaterally, no deformities. Neck and back are without deformity as well. No tenderness noted on palpation of the spinous processes. Spinous processes are midline. Cervical, thoracic, and lumbar paraspinal muscles are not tender and are without spasm. : normal external genitalia, without lesions, swelling, masses or tenderness. Musculoskeletal: Extremities, normal range of motion, non-tender, muscle strength 5/5 x 4. Negative Homans signs bilaterally on lower extremity. Distal pulses full symmetrical, no clubbing, cyanosis , edema. Neurological: Speech is clear, alert, and oriented x 4. No motor or sensory deficit, deep tendon reflexes normal, cerebellar intact. Cranial nerves II-XII intact. Psych: Alert and or appropriate, normal affect. Vascular: Good distal pulses, which are equal x4; capillary refill less than 2 seconds. Lymphatic, no lymphadenopathy. *Problems/Diagnosis: (1) Closed right hip fracture Status: Acute Total Time Spent on D/C: > 30 Minutes Date of Service: Mar 12, 2025 Billing Provider: JANET MARQUEZ MD Common Visit Codes: 69756-VHH/OBS DISCH DAY >30min Problem Qualifiers (1) Closed right hip fracture: Qualified Codes: S72.001A - Fracture of unspecified part of neck of right femur, initial encounter for closed fracture JANET MARQUEZ MD Mar 12, 2025 17:26
== END 2025-03-12 12:15 | disposition home or self-care (01) | DRG 853 ==
LOC: ER 14:23 → ED HOLD 18:34 → ORTHO 4S 03-10 14:13
PROVIDERS: ADMIT Family Medicine; ATTEND Family Medicine
PROC: 0QH634Z Insertion of Internal Fixation Device into Right Upper Femur, Percutaneous Approach (ICD-10-PCS; principal; 2025-03-11 13:14)
DX: A41.9 Sepsis, unspecified organism (principal); G93.41 Metabolic encephalopathy; S72.001A Fracture of unspecified part of neck of right femur, initial encounter for closed fracture; J44.1 Chronic obstructive pulmonary disease with (acute) exacerbation; I11.0 Hypertensive heart disease with heart failure; I50.9 Heart failure, unspecified; N39.0 Urinary tract infection, site not specified; F10.10 Alcohol abuse, uncomplicated; D64.9 Anemia, unspecified; I25.2 Old myocardial infarction; E87.6 Hypokalemia; I25.10 Atherosclerotic heart disease of native coronary artery without angina pectoris; E88.09 Other disorders of plasma-protein metabolism, not elsewhere classified; W18.39XA Other fall on same level, initial encounter; Y93.89 Activity, other specified; Z86.73 Personal history of transient ischemic attack (TIA), and cerebral infarction without residual deficits; Z88.5 Allergy status to narcotic agent; Y92.89 Other specified places as the place of occurrence of the external cause; Y99.8 Other external cause status; R26.9 Unspecified abnormalities of gait and mobility
CPT/HCPCS: 36415; 71045; 73502; 76000; 80048; 80053; 81001; 82550; 82948; 83690; 83735; 83880; 84100; 84132; 84443; 85007; 85025; 85610; 85730; 87081; 87088; 93005; 94760; 97110; 97116; 97162; 97530; 99285; A4618; A6258; A6449; A6590; A7000; C1713; C1769; G0378; J0456; J0690; J0696; J1171; J2250; J2270; J2405; J2704; J2919; J3010; J3360; J3411; J3475; J3480; J3490; J7030; J7040; J7120; P9045